=== PATIENT | male | born 1955 | race Caucasian/White ===

== ENCOUNTER → 2021-05-30 10:22 | Outpatient (BNVA) | payer OTHER, SELFPAY | PROVIDERS: Visit Provider Physician Assistant Medical | DX: S39.012D Strain of muscle, fascia and tendon of lower back, subsequent encounter (principal); W18.30XD Fall on same level, unspecified, subsequent encounter | CPT/HCPCS: 72110; 99203 ==

== ENCOUNTER 2021-06-13 17:59 | Outpatient (REF) | payer OTHER, SELFPAY ==
--- NOTE | ~2021-06-13 | MR_ITS ---
MR LUMBAR SPINE WITHOUT IV CONTRAST CLINICAL INFORMATION: Persistent low back pain. Fall on the right side. COMPARISON: None available. TECHNIQUE: MRI of the lumbar spine was obtained using routine sequences without contrast. FINDINGS: There are 5 nonrib-bearing lumbar-type vertebral bodies. Lumbar alignment is normal. The vertebral body heights are maintained. Partially imaged bone marrow edema within the lower sacrum concerning for the presence of a partially imaged acute edematous sacral fracture. Pelvic/sacral MRI could be obtained as clinically indicated. There is no bone marrow edema within the lumbar spine. Multilevel endplate osteophytes. Conus terminates at the L1 level. L1-L2: Disc contour normal. Mild bilateral facet arthropathy. No central canal stenosis and no foraminal stenosis. L2-L3: A left paracentral disc protrusion compresses the traversing left L3 nerve root within the left subarticular zone. Background annular disc bulge and moderate bilateral facet arthropathy and ligamentum flavum thickening. Mild narrowing of the central canal. No foraminal stenosis. L3-L4: Diffuse annular disc bulge and moderate bilateral facet arthropathy and ligamentum flavum thickening. No central canal stenosis. There is mild foraminal encroachment bilaterally. L4-L5: There is a broad-based inferiorly migrating left paracentral disc extrusion that compresses the traversing left greater than right L5 nerve roots within the subarticular zones and that results in mild central canal stenosis. Disc osteophyte and facet arthropathy result in moderate left foraminal stenosis with mild mass effect on the exiting left L4 nerve root. L5-S1: Diffuse disc osteophyte complex and bilateral facet arthropathy. Superimposed far right lateral disc osteophyte protrusion results in mass effect on the extraforaminal right L5 nerve root. MR/MR lumbar spine wo con IMPRESSION: - Partially imaged bone marrow edema within the lower sacrum concerning for the presence of a partially imaged acute edematous sacral fracture. Pelvic/sacral MRI could be obtained as clinically indicated. - At L2-L3, a left paracentral disc protrusion compresses the traversing left L3 nerve root within the left subarticular zone. - At L4-L5, a broad-based inferiorly migrating left paracentral disc extrusion compresses the traversing left greater than right L5 nerve roots within the subarticular zones and results in mild central canal stenosis. Moderate left foraminal stenosis at L4-L5 with mild mass effect on the exiting left L4 nerve root. - At L5-S1, a far right lateral disc osteophyte protrusion results in mass effect on the extraforaminal right L5 nerve root
== END 2021-06-13 18:00 | disposition home or self-care (01) ==
LOC: HO.MRI 17:59
PROVIDERS: PCP Internal Medicine; Visit Provider Internal Medicine
DX: M54.50 Low back pain, unspecified (principal)
CPT/HCPCS: 72148

== ENCOUNTER → 2021-06-19 13:34 | Outpatient (BNVA) | payer OTHER, SELFPAY | PROVIDERS: PCP Internal Medicine; Visit Provider Physician Assistant Medical | DX: M54.41 Lumbago with sciatica, right side (principal); M79.661 Pain in right lower leg | CPT/HCPCS: 99213 ==

== ENCOUNTER 2021-07-04 19:25 | Outpatient (REF) | payer OTHER, SELFPAY ==
--- NOTE | ~2021-07-04 | MR_ITS ---
EXAMINATION: MR PELVIS WITHOUT CONTRAST CLINICAL INFORMATION: Fall on 05/12/2021. Back pain. COMPARISON: Lumbar spine MRI dated 06/13/2021. TECHNIQUE: Multisequence MR imaging of the pelvis was obtained without contrast on a high-field strength scanner. FINDINGS: BONE: There is transverse low T1/high T2 signal through the mid/distal aspect of the sacrum at the level of the S3-S4 intervertebral disc with prominent adjacent marrow edema, consistent with a nondisplaced transverse fracture. There is minimal anterolisthesis of S4 in relation to S3. Right hip articular cartilage loss with underlying subchondral cystic change and marginal osteophytes. No femoral head avascular necrosis. No concerning lytic or blastic osseous lesion. MUSCLES/TENDONS: Intact. INTRAPELVIC STRUCTURES: Mild prostatomegaly. SOFT TISSUES: No abnormal soft tissue mass or fluid collection. MR/MR pelvis wo con IMPRESSION: 1. Nondisplaced, transverse fracture through the mid/distal sacrum at the level of the S3-S4 intervertebral disc with air is minimal anterolisthesis. 2. [id number] right hip osteoarthritis. 3. Mild prostatomegaly.
== END 2021-07-04 19:26 | disposition home or self-care (01) ==
LOC: HO.MRI 19:25
PROVIDERS: Visit Provider Internal Medicine
DX: S39.92XA Unspecified injury of lower back, initial encounter (principal); W18.30XA Fall on same level, unspecified, initial encounter; Y93.9 Activity, unspecified; Y92.9 Unspecified place or not applicable; Y99.8 Other external cause status
CPT/HCPCS: 72195

== ENCOUNTER → 2021-07-10 15:19 | Outpatient (BNVA) | payer OTHER, SELFPAY | PROVIDERS: PCP Internal Medicine; Visit Provider Internal Medicine | DX: S32.10XD Unspecified fracture of sacrum, subsequent encounter for fracture with routine healing (principal); X58.XXXD Exposure to other specified factors, subsequent encounter | CPT/HCPCS: 99213 ==